=== PATIENT | male | born 1980 | race Hispanic/Latino ===

== ENCOUNTER 2019-12-12 12:56 | Inpatient (IN) | payer SELFPAY ==
[~2019-12-12] VITALS: Ht 175.3 cm; Wt 106.8 kg
[2019-12-12 14:27] LABS: BASOPHILS % (AUTO) 0.6 % (0.0-5.0); EOSINOPHILS % (AUTO) 2.7 % (0.0-8.0); HEMATOCRIT 49.6 % (42-54); LYMPHOCYTES % (AUTO) 34.5 % (21.0-51.0); MEAN CORPUSCULAR HEMOGLOBIN 31.9 pg (27.0-33.0); MEAN CORPUSCULAR HGB CONC 33.9 g/dL (32.0-36.0); MEAN CORPUSCULAR VOLUME 94.1 fL (79-99); MONOCYTES % (AUTO) 9.3 % (3.0-13.0); NEUTROPHILS % (AUTO) 52.6 % (40.0-77.0); PLATELET COUNT (AUTO) 221 K/uL (130-400); RED BLOOD CELL COUNT(AUTO) 5.27 MIL/uL (4.50-6.20); RED CELL DISTRIBUTION WIDTH 13.1 % (11.0-15.5); WHITE BLOOD COUNT (AUTO) 7.1 K/uL (4.8-10.8)
[2019-12-12 14:39] LABS: CREATININE 0.9 mg/dL (0.5-1.5); INR 0.94 (0.85-1.15); PARTIAL THROMBOPLASTIN TIME 27.1 SEC (26.3-35.5); POTASSIUM 3.8 mmol/L (3.5-5.1); PROTHROMBIN TIME 9.9 SEC (9.6-11.6)
[2019-12-12 14:44] LABS: BILIRUBIN,TOTAL 0.6 mg/dL (0.2-1.0); TOTAL PROTEIN, SERUM 7.8 g/dL (6.0-8.3)
[2019-12-12 15:13] LABS: APPEARANCE,URINE Clear (CLEAR); BILIRUBIN,URINE Negative (NEGATIVE); COLOR,URINE Yellow (YELLOW); GLUCOSE, URINE (UA) Negative (NEGATIVE); KETONES,URINE Negative (NEGATIVE); LEUKOCYTE ESTERASE ,URINE Negative (NEGATIVE); NITRATE,URINE Negative (NEGATIVE); OCCULT BLOOD,URINE Negative (NEGATIVE); PH,URINE 5.5 (5.0-8.0); PROTEIN,URINE Negative (NEGATIVE)
[2019-12-12 15:19] LABS: AMPHET/METH SCREEN,URINE NEGATIVE (NEGATIVE); BARBITURATE SCREEN, URINE NEGATIVE (NEGATIVE); BENZODIAZEPINES SCREEN,URINE NEGATIVE (NEGATIVE); CANNABINOID SCREEN,URINE NEGATIVE (NEGATIVE); COCAINE SCREEN,URINE POSITIVE (NEGATIVE); OPIATE SCREEN,URINE NEGATIVE (NEGATIVE); PHENCYCLIDINE SCREEN,URINE NEGATIVE (NEGATIVE)
[2019-12-12 17:48] LABS: ABG BASE EXCESS 0.6 mmol/L (-2.0-3.0); ABG HCO3 26.5 mmol/L (21.0-28.0); ABG PCO2 48 mmHg (35-48)
[2019-12-12] MEDS: SODIUM CHLORIDE 0.9% 1000ML 1,000 ML IV SCH (17:57)
[2019-12-12] MEDS ORDERED: SODIUM CHLORIDE 0.9% 1000ML 1,000 ML IV ONE (18:55)
[2019-12-12] MEDS ORDERED: ENOXAPARIN SODIUM 40 MG/0.4 ML SYRINGE SQ ONE (18:55)
[2019-12-12] MEDS ORDERED: ASPIRIN 325 MG TABLET ONE (18:55)
[2019-12-12 19:39] LABS: HEMOGLOBIN A1C 5.7 % (4.0-6.0)
[2019-12-12 19:52] LABS: THYROID STIMULATING HORMONE 3.19 uIU/mL (0.36-3.74)
[2019-12-12] MEDS ORDERED: IOHEXOL-350 75 ML VIAL IV ONE (19:59)
[2019-12-13 05:03] LABS: BASOPHILS % (AUTO) 0.6 % (0.0-5.0); EOSINOPHILS % (AUTO) 4.5 % (0.0-8.0); HEMATOCRIT 48.9 % (42-54); LYMPHOCYTES % (AUTO) 37.4 % (21.0-51.0); MEAN CORPUSCULAR HEMOGLOBIN 32.6 pg (27.0-33.0); MEAN CORPUSCULAR HGB CONC 34.2 g/dL (32.0-36.0); MEAN CORPUSCULAR VOLUME 95.3 fL (79-99); MONOCYTES % (AUTO) 10.7 % (3.0-13.0); NEUTROPHILS % (AUTO) 46.6 % (40.0-77.0); PLATELET COUNT (AUTO) 181 K/uL (130-400); RED BLOOD CELL COUNT(AUTO) 5.13 MIL/uL (4.50-6.20); RED CELL DISTRIBUTION WIDTH 12.9 % (11.0-15.5); WHITE BLOOD COUNT (AUTO) 4.9 K/uL (4.8-10.8)
[2019-12-13 05:13] LABS: INR 0.97 (0.85-1.15); PARTIAL THROMBOPLASTIN TIME 27.9 SEC (26.3-35.5); PROTHROMBIN TIME 10.2 SEC (9.6-11.6)
[2019-12-13 05:25] LABS: ALBUMIN 3.6 g/dL (3.5-5.0); BILIRUBIN,TOTAL 0.9 mg/dL (0.2-1.0); CREATININE 0.9 mg/dL (0.5-1.5); THYROID STIMULATING HORMONE 2.79 uIU/mL (0.36-3.74); TOTAL PROTEIN, SERUM 7.4 g/dL (6.0-8.3)
[2019-12-13] MEDS ORDERED: ACETAMINOPHEN EXTRA STRENGTH 500 MG TABLET ONE (08:46)
[2019-12-13] MEDS ORDERED: ENOXAPARIN SODIUM 40 MG/0.4 ML SYRINGE SQ ONE (08:46)
[2019-12-13] MEDS: ENOXAPARIN SODIUM 40 MG/0.4 ML SYRINGE SQ SCH (09:00)
[2019-12-13] MEDS: ASPIRIN 81MG TAB.CHEW PO SCH (09:45)
--- NOTE | 2019-12-13 10:47 | NUR ---
INITIAL SW met with patient. Patient states he lives with his mother, Quan Major, [phone]. No home services. DME: CPAP. Patient is able to complete ADL's independently but does not drive. 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 Patient has no PCP. Pharmacy is [facility] located on [address]. DCP is home Patient has no insurance or benefits. He is a [place] citizen and has worked in the . Patient was provided with community resources for post hospitalization follow up. Patient was also provided with Good RX card for prescriptions and educated on [employer] $4 medication program and [employer] $5 medication program. Patient is being assisted by [employer] for financial matters. Addendum: 12/13/19 at 1050 by SENIA SMILEY SS Amended: Links added.
[2019-12-13] MEDS: SODIUM CHLORIDE 0.9% 1000ML 1,000 ML IV SCH (13:57)
--- NOTE | 2019-12-13 17:12 | NUR ---
ARRIVAL TO FLOOR ROOM 224 AAOX3 DENIES CP DENIES SOB DENIES NV NO COMPLAINTS AT THIS TIME, RESTING IN BED, ARRIVED WITH ORDERS, CALL LIGHT WITHIN REACH.
[2019-12-13 17:36] VITALS: BP 142/98
[2019-12-13 19:25] VITALS: BP 145/83
--- NOTE | 2019-12-13 21:00 | NUR ---
PT STATED NO PAIN. NO DISTRESS NOTED. AMBULATORY. IV FLUIDS CONTINUE.
[2019-12-14] VITALS (7 sets, daily range): BP systolic 131–153; BP diastolic 70–96
[2019-12-14 04:56] LABS: BASOPHILS % (AUTO) 0.6 % (0.0-5.0); EOSINOPHILS % (AUTO) 5.2 % (0.0-8.0); HEMATOCRIT 47.6 % (42-54); LYMPHOCYTES % (AUTO) 37.1 % (21.0-51.0); MEAN CORPUSCULAR HEMOGLOBIN 32.1 pg (27.0-33.0); MEAN CORPUSCULAR VOLUME 94.3 fL (79-99); MONOCYTES % (AUTO) 10.5 % (3.0-13.0); NEUTROPHILS % (AUTO) 46.2 % (40.0-77.0); PLATELET COUNT (AUTO) 194 K/uL (130-400); RED BLOOD CELL COUNT(AUTO) 5.05 MIL/uL (4.50-6.20); RED CELL DISTRIBUTION WIDTH 12.8 % (11.0-15.5); WHITE BLOOD COUNT (AUTO) 5.3 K/uL (4.8-10.8)
[2019-12-14 05:32] LABS: ALBUMIN 3.4 g/dL (3.5-5.0); BILIRUBIN,TOTAL 0.7 mg/dL (0.2-1.0); CREATININE 0.9 mg/dL (0.5-1.5)
[2019-12-14] MEDS: SODIUM CHLORIDE 0.9% 1000ML 1,000 ML IV SCH (05:38)
--- NOTE | 2019-12-14 08:00 | NUR ---
ASSESSMENT PT IS AAOX3 RESTING IN BED NO COMPLAINTS CURRENTLY ON BIPAP, BREATHING PATTERN IS EVEN AND UNLABORED. DR MALIN MADE AWARE OF CONSULT FOR L4-L5 STENOSIS. WILL SEE PATIENT LATER.
[2019-12-14] MEDS: ASPIRIN 81MG TAB.CHEW PO SCH (08:15)
[2019-12-14] MEDS: ENOXAPARIN SODIUM 40 MG/0.4 ML SYRINGE SQ SCH (08:15)
[2019-12-14] MEDS ORDERED: ASPIRIN 81MG TAB.CHEW PO SCH (09:00)
--- NOTE | 2019-12-14 13:26 | NUR ---
DYSPHAGIA EVAL COMPLETE. -S/S OF ASPIRATION. RECOMMEND REGULAR, THIN LIQUID DIET; PILLS WHOLE WITH LIQUIDS. Addendum: 12/14/19 at 1328 by ARON FELIPE, [facility] Amended: Links added.
--- NOTE | 2019-12-14 13:53 | NUR ---
+UDS Sw met with pt who states he was at a friend's wedding Sat night and did cocaine with friends. Pt denies that he does cocaine on a regular or occasional basis. SW offered resources list for substance abuse and pt refused. Pt states he did not need, he did not have problem with cocaine. Pt denies use of any other illegal drug of alcohol.
[2019-12-14] MEDS ORDERED: PHARMACY COMMUNICATION MISC SCH (15:00)
--- NOTE | 2019-12-14 15:00 | NUR ---
DR KIMO CHRISTOPHER SAW PATIENT, ORDERS RECEIVED
--- NOTE | 2019-12-14 17:00 | NUR ---
DR ERWIN ROUNDED SAW PATIENT, ORDERS RECEIVED. PLAN DC HOME TOMORROW.
[2019-12-14] MEDS ORDERED: GABAPENTIN 300 MG CAPSULE PO SCH (21:00)
[2019-12-14] MEDS: DEXAMETHASONE SOD PHOSPHATE 4 MG/ML 1ML VIAL IVP SCH (22:07)
[2019-12-15 03:00] VITALS: BP 138/85
[2019-12-15 05:26] LABS: BASOPHILS % (AUTO) 0.4 % (0.0-5.0); EOSINOPHILS % (AUTO) 0.2 % (0.0-8.0); HEMATOCRIT 50.8 % (42-54); LYMPHOCYTES % (AUTO) 23.4 % (21.0-51.0); MEAN CORPUSCULAR HEMOGLOBIN 31.9 pg (27.0-33.0); MEAN CORPUSCULAR HGB CONC 33.9 g/dL (32.0-36.0); MEAN CORPUSCULAR VOLUME 94.2 fL (79-99); MONOCYTES % (AUTO) 3.4 % (3.0-13.0); NEUTROPHILS % (AUTO) 72.2 % (40.0-77.0); PLATELET COUNT (AUTO) 228 K/uL (130-400); RED BLOOD CELL COUNT(AUTO) 5.39 MIL/uL (4.50-6.20); RED CELL DISTRIBUTION WIDTH 12.7 % (11.0-15.5); WHITE BLOOD COUNT (AUTO) 5.2 K/uL (4.8-10.8)
[2019-12-15] MEDS: DEXAMETHASONE SOD PHOSPHATE 4 MG/ML 1ML VIAL IVP SCH (05:48)
[2019-12-15 05:56] LABS: ALBUMIN 3.8 g/dL (3.5-5.0); BILIRUBIN,TOTAL 0.6 mg/dL (0.2-1.0); CREATININE 0.9 mg/dL (0.5-1.5); POTASSIUM 4.4 mmol/L (3.5-5.1); TOTAL PROTEIN, SERUM 7.9 g/dL (6.0-8.3)
[2019-12-15] MEDS ORDERED: MEDROL DAY 1 BREAKFAST PO NR (07:30)
[2019-12-15 07:50] VITALS: BP 152/98
[2019-12-15] MEDS: ASPIRIN 81MG TAB.CHEW PO SCH (09:58)
[2019-12-15] MEDS: ENOXAPARIN SODIUM 40 MG/0.4 ML SYRINGE SQ SCH (09:58)
[2019-12-15 11:47] VITALS: BP 134/97
[2019-12-15] MEDS: MEDROL DAY 1 LUNCH AND DINNER PO NR ×2 (12:15→17:20)
[2019-12-15] MEDS ORDERED: METO25TA6 PO (13:35)
[2019-12-15] MEDS ORDERED: ASPI-1005 PO (13:35)
[2019-12-15] MEDS ORDERED: DEXA4TAB PO (13:35)
[2019-12-15] MEDS ORDERED: METOPROLOL TARTRATE 25 MG TAB PO SCH (13:45)
--- NOTE | 2019-12-15 15:03 | NUR ---
NUTRITION EDUCATION COMPLETED RD PROVIDED MEDITERRANEAN DIET, INCREASE PHYSICAL ACTIVITY, AND WT LOSS TIPS/ RECOMMENDATIONS. THE MEDITERRANEAN DIET CONSISTS OF HEALTHY EATING SUCH LIMITING SATURATED FAT, TRANS FAT, ADDED SUGARS AND HIGH SALT. ALL QUESTIONS WERE ANSWERED AND PT VERBALIZED UNDERSTANDING. EDUCATION MATERIALS WERE PROVIDED IN [facility] FOR PT TO TAKE HOME. Addendum: 12/15/19 at [address] Amended: Links added.
[2019-12-15 15:25] VITALS: BP 131/80
[2019-12-15] MEDS ORDERED: MEDROL DAY1 HS PO NR (21:00)
[2019-12-16] MEDS ORDERED: MEDROL DAY 2 BRK PO NR (07:30)
[2019-12-16] MEDS ORDERED: MEDROL DAY 2 LCH PO NR (11:30)
[2019-12-16] MEDS ORDERED: MEDROL DAY 2 DIN PO NR (16:30)
[2019-12-16] MEDS ORDERED: MEDROL DAY 2 HS PO NR (21:00)
[2019-12-17] MEDS ORDERED: MEDROL DAY 3 PO NR (07:30)
[2019-12-17] MEDS ORDERED: MEDROL DAY 4 BKF PO NR (07:30)
[2019-12-17] MEDS ORDERED: MEDROL DAY 4 LCH PO NR (11:30)
[2019-12-17] MEDS ORDERED: MEDROL DAY 4 DIN PO NR (16:30)
[2019-12-18] MEDS ORDERED: MEDROL DAY 5 BKF PO NR (07:30)
[2019-12-18] MEDS ORDERED: MEDROL DAY 5 HS PO NR (21:00)
[2019-12-19] MEDS ORDERED: MEDROL DAY 6 PO NR (07:30)
== END 2019-12-15 17:50 | disposition home or self-care (01) | DRG 551 ==
LOC: EDH 12:56 → EDHIP 12:57 → 2DH 12-13 16:43
PROVIDERS: ADMIT Family Medicine; ATTEND Family Medicine
PROC: 5A09357 Assistance with Respiratory Ventilation, Less than 24 Consecutive Hours, Continuous Positive Airway Pressure (ICD-10-PCS; principal; 2019-12-13)
PROC: 5A09357 Assistance with Respiratory Ventilation, Less than 24 Consecutive Hours, Continuous Positive Airway Pressure (ICD-10-PCS; 2019-12-14)
PROC: 5A09357 Assistance with Respiratory Ventilation, Less than 24 Consecutive Hours, Continuous Positive Airway Pressure (ICD-10-PCS; 2019-12-15)
DX: M51.16 Intervertebral disc disorders with radiculopathy, lumbar region (principal); J96.21 Acute and chronic respiratory failure with hypoxia; J96.22 Acute and chronic respiratory failure with hypercapnia; E66.2 Morbid (severe) obesity with alveolar hypoventilation; M48.061 Spinal stenosis, lumbar region without neurogenic claudication; I10 Essential (primary) hypertension; R74.8 Abnormal levels of other serum enzymes; M10.9 Gout, unspecified; F14.10 Cocaine abuse, uncomplicated; Z91.14 Patient's other noncompliance with medication regimen; Z91.19 Patient's noncompliance with other medical treatment and regimen; Z99.81 Dependence on supplemental oxygen; Z68.34 Body mass index [BMI] 34.0-34.9, adult
CPT/HCPCS: 36415; 36600; 70450; 70551; 71045; 71275; 72148; 74018; 80053; 80305; 81003; 82140; 82550; 82607; 82803; 83036; 83880; 84443; 84484; 85025; 85610; 85651; 85730; 92610; 93005; 94660; G0378; J1100; J1650; J7030; J7509; Q9967

== ENCOUNTER 2021-05-19 11:23 | Emergency (ER) | payer OTHER ==
[~2021-05-19] VITALS: Ht 175.3 cm; Wt 113.4 kg
[~2021-05-19 11:23] MED LIST: ASPI-1005 PO; DEXA4TAB PO; METO25TA6 PO
[2021-05-19 11:25] VITALS: BP 160/111
[2021-05-19 12:08] LABS: BASOPHILS % (AUTO) 0.7 % (0.0-5.0); EOSINOPHILS % (AUTO) 2.3 % (0.0-8.0); HEMATOCRIT 50.1 % (42-54); LYMPHOCYTES % (AUTO) 28.2 % (21.0-51.0); MEAN CORPUSCULAR HEMOGLOBIN 33.1 pg (27.0-33.0); MEAN CORPUSCULAR HGB CONC 33.1 g/dL (32.0-36.0); MONOCYTES % (AUTO) 11.5 % (3.0-13.0); NEUTROPHILS % (AUTO) 57.1 % (40.0-77.0); PLATELET COUNT (AUTO) 176 K/uL (130-400); RED BLOOD CELL COUNT(AUTO) 5.01 MIL/uL (4.50-6.20); RED CELL DISTRIBUTION WIDTH 13.3 % (11.0-15.5)
[2021-05-19 12:27] LABS: ALBUMIN 3.5 g/dL (3.5-5.0); BILIRUBIN,TOTAL 0.8 mg/dL (0.2-1.0); CREATININE 0.8 mg/dL (0.5-1.5); POTASSIUM 4.1 mmol/L (3.5-5.1)
[2021-05-19 12:29] LABS: B-TYPE NATRIURETIC PEPTIDE 18 pg/mL (0-100)
[2021-05-19 14:38] VITALS: BP 139/83
== END 2021-05-19 14:40 | disposition home or self-care (01) ==
LOC: EDH 11:23
DX: R60.0 Localized edema (principal); R03.0 Elevated blood-pressure reading, without diagnosis of hypertension; E66.9 Obesity, unspecified; F17.210 Nicotine dependence, cigarettes, uncomplicated; Z79.52 Long term (current) use of systemic steroids; Z79.82 Long term (current) use of aspirin; Z79.899 Other long term (current) drug therapy
CPT/HCPCS: 36415; 71045; 80053; 83880; 84484; 85025; 93005

== ENCOUNTER 2021-06-03 14:33 | Emergency (ER) | payer OTHER ==
[~2021-06-03] VITALS: Ht 175.3 cm; Wt 120.2 kg
[2021-06-03 14:36] VITALS: BP 157/107
[2021-06-03 15:30] LABS: BASOPHILS % (AUTO) 0.6 % (0.0-5.0); EOSINOPHILS % (AUTO) 4.2 % (0.0-8.0); HEMATOCRIT 53.8 % (42-54); LYMPHOCYTES % (AUTO) 28.8 % (21.0-51.0); MEAN CORPUSCULAR HGB CONC 32.9 g/dL (32.0-36.0); MEAN CORPUSCULAR VOLUME 100.4 fL (79-99); MONOCYTES % (AUTO) 12.3 % (3.0-13.0); NEUTROPHILS % (AUTO) 53.8 % (40.0-77.0); PLATELET COUNT (AUTO) 185 K/uL (130-400); RED BLOOD CELL COUNT(AUTO) 5.36 MIL/uL (4.50-6.20); WHITE BLOOD COUNT (AUTO) 6.4 K/uL (4.8-10.8)
[2021-06-03 15:43] LABS: CARBON DIOXIDE 33 mmol/L (21-32); CHLORIDE 96 mmol/L (101-111); CREATININE 0.8 mg/dL (0.5-1.5); GLOMERULAR FILTR. RATE CALC 113 mL/min (>60); GLUCOSE,RANDOM 103 mg/dL (70-105); POTASSIUM 3.8 mmol/L (3.5-5.1); SODIUM SERUM 134 mmol/L (136-145); UREA NITROGEN, BLOOD 10 mg/dL (7-18)
[2021-06-03 15:54] LABS: ALANINE AMINOTRANSFERASE 57 U/L (12-78); ALBUMIN 3.9 g/dL (3.5-5.0); ASPARTATE AMINOTRANSFERASE 36 U/L (10-37); BILIRUBIN,TOTAL 1.1 mg/dL (0.2-1.0); CREATINE KINASE, TOTAL 210 U/L (21-232); MYOGLOBIN 28 ng/mL (10-92); TOTAL PROTEIN, SERUM 7.8 g/dL (6.0-8.3); TROPONIN I < 0.04 ng/mL (0.00-0.06)
[2021-06-03] MEDS ORDERED: TAMS-1 PO (17:38)
[2021-06-03] MEDS ORDERED: HYDR25TA PO (17:38)
[2021-06-03] MEDS ORDERED: LISI10TA24 PO (17:38)
== END 2021-06-03 17:54 | disposition home or self-care (01) ==
LOC: EDH 14:33
DX: R60.0 Localized edema (principal); I10 Essential (primary) hypertension; R10.30 Lower abdominal pain, unspecified; E66.01 Morbid (severe) obesity due to excess calories; F17.200 Nicotine dependence, unspecified, uncomplicated; Z79.52 Long term (current) use of systemic steroids; Z79.82 Long term (current) use of aspirin
CPT/HCPCS: 36415; 80053; 82550; 83874; 83880; 84484; 85025; 93005